=== PATIENT | female | born 1955 | race Caucasian/White ===

== ENCOUNTER 2021-03-28 13:20 | Emergency (ER) | payer BC ==
[~2021-03-28] VITALS: Ht 160 cm; Wt 79.4 kg
[~2021-03-28 13:20] MED LIST: CRESTOR10 MG PO; DOCUSATE SODIU250 MG PO; ESTRADIOL TRAN1 EAC1 TD; FLUOXETINE HCL20 MG PO; HYDROCHLOROTHIA25 MG PO
--- OUTSIDE RECORDS SUMMARY | 2021-03-28 13:22 | XMS ---
PreManage Notification: [facility] Security Continuous Improvement Black Belt Events No recent Security Events currently on file CRITERIA MET - [facility] PROVIDERS There are no care providers on record at this time. Margie has no Care Guidelines for this patient. Millie VISIT COUNT (12 MO.) 1 ANGEL [place] TOTAL 1 NOTE: Visits indicate total known visits. ED/UCC VISIT TRACKING (12 MO.) 03/28/2021 13:20 ANGEL [place] OR TYPE: Emergency COMPLAINT: - FLU SYMPTOMS (INFUSION) INPATIENT VISIT TRACKING (12 MO.) No inpatient visits to display in this time frame [email or web address]
== END 2021-03-28 17:45 | disposition home or self-care (01) ==
LOC: ED 13:20
DX: U07.1 COVID-19 (principal); Z23 Encounter for immunization; Z88.1 Allergy status to other antibiotic agents; Z79.899 Other long term (current) drug therapy
CPT/HCPCS: 81001; 99284-25; M0247